=== PATIENT | male | born 1955 | race Caucasian/White ===

== ENCOUNTER 2018-03-17 11:44 | Emergency (ER) | payer BC ==
[~2018-03-17] VITALS: Ht 167.6 cm; Wt 77.1 kg
[~2018-03-17 11:44] MED LIST: ASPI-84 PO; MULT-608 PO
--- OUTSIDE RECORDS SUMMARY | 2018-03-17 11:49 | XMS REPORT | Continuity of Care Document ---
Author Author [facility] Organization [facility] Address Unknown Phone Unavailable Allergies Active Description Code Type Severity Reaction Onset Reported/Identified Relationship to Patient Clinical Status Yes No Known Drug Allergies [id number] Drug Allergy Unknown N/A 11/06/2009 Medications There is no data. Problems Date Dx Coded Attending Type Code Diagnosis Diagnosed By 03/13/2014 MALIHA ALFARO DO Ot V12.72 PERSONAL HISTORY OF COLONIC POLYPS 03/13/2014 MALIHA ALFARO DO Ot V67.9 FOLLOW-UP EXAM NOS 06/15/2017 MALIHA ALFARO DO Ot V72.84 EXAM PRE-OPERATIVE NOS Procedures There is no data. Results There is no data. Encounters ACCT No. Visit Date/Time Discharge Status Pt. Type Provider Facility Loc./Unit Complaint [id number] 01/18/2014 08:37:13 01/18/2014 23:59:59 CLS Outpatient Ruthie Silveira [id number] 10/25/2013 18:08:33 10/25/2013 23:59:59 CLS Outpatient Ruthie Silveira [id number] 03/13/2014 11:34:00 03/13/2014 14:13:00 DIS Outpatient MALIAH ALFARO DO [facility] [place] SCREENING [id number] 03/08/2014 05:45:00 03/08/2014 23:59:59 CLS Outpatient MALIHA ALFARO DO [facility] PREOP SCREENING [id number] 02/08/2014 07:23:00 02/08/2014 23:59:59 CLS Outpatient MALIHA ALFARO DO [facility] PREOP [id number] 09/11/2016 20:21:00 Document Registration
[2018-03-17] MEDS ORDERED: LORazepam INJ 2 MG/ML (ATIVAN) VIAL IVP PRN (12:15)
--- NOTE | 2018-03-17 12:17 | ED Neurological Problem ---
General Chief Complaint: Neurological Problems Stated Complaint: VERTIGO Nursing Triage Note: PT PRESENTS TO ED WITH COMPLAINTS OF VERTIGO WORSE WITH MOVEMENT OR LAYING DOWN. STATES IT STARTED LAST NIGHT. PT HAS HX OF VERTIGO AND WAS AT WORK AT [employer] AND WENT TO SEE THE [employer] [facility] WHEN HE FELL DUE TO DIZZINESS. PT DENIES ANY INJURY OR LOC. Nursing Sepsis Screen: No Definite Risk Source: patient Exam Limitations: no limitations History of Present Illness Date Seen by Provider: Mar 17, 2018 Time Seen by Provider: 12:13 Initial Comments To ER per private vehicle from work ([employer]) with reports of severe vertigo. He states this began acutely last night in the middle of the night. Pain is much worse when he stands upright or turns his head in any direction. When he felt perfectly still the vertigo subsides. He states that he has had troubles with vertigo since he was 31 at the time of onset of this. He states that he's been seen at [facility] and by several neurologists over the years to evaluate this vertigo. He does have a prescription for meclizine and he took one of these at 9 AM this morning without relief. He states that typically these episodes of vertigo which she gets once a year or so last few days before subsiding. He was sent here after seeing the nurse practitioner at [facility] from [facility] urgent care and was referred here. Over the years he has had the Bryce maneuver tried multiple times and he states all it does is make him more dizzy. Severity: moderate Associated Symptoms: No confusion, No fatigue, No fever/chills Allergies and Home Medications Allergies Coded Allergies: No Known Drug Allergies (Unverified , 11/06/09) Home Medications Aspirin 81 Mg Tablet.dr, 81 MG PO DAILY, (Reported) Multivitamins 1 Tab Tablet, 1 TAB PO DAILY, (Reported) Patient Home Medication List Home Medication List Reviewed: Yes Review of Systems Review of Systems Constitutional: see HPI Eyes: No Symptoms Reported Ears, Nose, Mouth, Throat: no symptoms reported Respiratory: no symptoms reported Cardiovascular: no symptoms reported Genitourinary: no symptoms reported Musculoskeletal: no symptoms reported Skin: no symptoms reported Past Xqmjfwd-Fddvaa-Uuidli Hx Patient Social History Alcohol Use: Occasionally Uses Recreational Drug Use: No Smoking Status: Never a Smoker Recent Foreign Travel: No Contact w/Someone Who Travel: No Recent Infectious Disease Expo: No Recent Hopitalizations: Yes (23 YRS AGO RINGING IN EARS/PANIC ATTACK) Past Medical History Surgeries: Yes (APPY AT 10 YEARS OLD, BLOOD CLOT REMOVED FROM R-AC AREA, L SHOULDER) Appendectomy Respiratory: No Cardiac: Yes High Cholesterol Neurological: Yes Vertigo Reproductive Disorders: No Gastrointestinal: No Musculoskeletal: No Endocrine: No HEENT: No Cancer: No Psychosocial: No Blood Disorders: No Physical Exam Vital Signs Vital Signs - First Documented 03/17/18 11:56 Temp 98.2 Pulse 75 Resp 20 B/P (MAP) 141/93 (109) Pulse Ox 96 Capillary Refill : Less Than 3 Seconds Height, Weight, BMI Height: 5'6.00" Weight: 170lbs. oz. 77.029302vx; BMI Method:Stated General Appearance: WD/WN, no apparent distress HEENT: PERRL/EOMI, normal ENT inspection, TMs normal, other (no nystagmus) Neck: non-tender, full range of motion Respiratory: normal breath sounds, no respiratory distress, no accessory muscle use Cardiovascular: regular rate, rhythm, no murmur Gastrointestinal: normal bowel sounds, non tender, soft Neurologic/Psychiatric: alert, normal mood/affect, oriented x 3 Crainal Nerves: normal hearing, normal speech, PERRL Skin: normal color, warm/dry Progress/Results/Core Measures Results/Orders Lab Results Laboratory Tests Test 03/17/18 11:55 Range/Units White Blood Count 8.4 4.3-11.0 10^3/uL Red Blood Count 5.25 4.35-5.85 10^6/uL Hemoglobin 16.4 13.3-17.7 G/DL Hematocrit 48 40-54 % Mean Corpuscular Volume 91 80-99 FL Mean Corpuscular Hemoglobin 31 25-34 PG Mean Corpuscular Hemoglobin Concent 34 32-36 G/DL Red Cell Distribution Width 12.7 10.0-14.5 % Platelet Count 371 130-400 10^3/uL Mean Platelet Volume 9.5 7.4-10.4 FL Neutrophils (%) (Auto) 59 42-75 % Lymphocytes (%) (Auto) 30 12-44 % Monocytes (%) (Auto) 9 0-12 % Eosinophils (%) (Auto) 2 0-10 % Basophils (%) (Auto) 1 0-10 % Neutrophils # (Auto) 5.0 1.8-7.8 X 10^3 Lymphocytes # (Auto) 2.5 1.0-4.0 X 10^3 Monocytes # (Auto) 0.7 0.0-1.0 X 10^3 Eosinophils # (Auto) 0.2 0.0-0.3 10^3/uL Basophils # (Auto) 0.0 0.0-0.1 10^3/uL Sodium Level 138 135-145 MMOL/L Potassium Level 4.4 3.6-5.0 MMOL/L Chloride Level 105 98-107 MMOL/L Carbon Dioxide Level 22 21-32 MMOL/L Anion Gap 11 5-14 MMOL/L Blood Urea Nitrogen 16 7-18 MG/DL Creatinine 1.03 0.60-1.30 MG/DL Estimat Glomerular Filtration Rate > 60 BUN/Creatinine Ratio 16 Glucose Level 101 70-105 MG/DL Calcium Level 10.1 8.5-10.1 MG/DL My Orders Orders - PRINCESS CERNA [employer]INEER Lorazepam Injection (Ativan Injection) (03/17/18 12:15) Basic Metabolic Panel (03/17/18 12:17) Cbc With Automated Diff (03/17/18 12:17) Medications Given in ED Current Medications Medications Dose Ordered Sig/Gigi Route Start Time Stop Time Status Last Admin Dose Admin Lorazepam 1 mg ONCE PRN IVP 03/17/18 12:15 03/17/18 12:30 1 MG Vital Signs/I&O 03/17/18 11:56 Temp 98.2 Pulse 75 Resp 20 B/P (MAP) 141/93 (109) Pulse Ox 96 Blood Pressure Mean: 109 Departure Communication (Admissions) 1311-patient states he is feeling more relaxed and the vertigo is still present but it is more tolerable at this time. He is ready to go home. Impression Primary Impression: Vertigo Disposition: HOME, SELF-CARE Condition: Stable Departure-Patient Inst. Decision time for Depature: 13:11 Referrals: PITER JUÁREZ DO (PCP) Primary Care Physician Patient Instructions: Vertigo (a Type of Dizziness) (DC) Add. Discharge Instructions: 1. Take medication as directed 2. Follow-up with your doctor next week 3. Return to ER for any worsening. All discharge instructions reviewed with patient and/or family. Voiced understanding. PRINCESS CERNA APRN Mar 17, 2018 12:17
[2018-03-17 12:33] LABS: BASOPHILS % (AUTO) 1 % (0-10); EOSINOPHILS # (AUTO) 0.2 10^3/uL (0.0-0.3); EOSINOPHILS % (AUTO) 2 % (0-10); HEMATOCRIT 48 % (40-54); HEMOGLOBIN 16.4 G/DL (13.3-17.7); LYMPHOCYTES # (AUTO) 2.5 X 10^3 (1.0-4.0); LYMPHOCYTES % (AUTO) 30 % (12-44); MEAN CORPUSCULAR HEMOGLOBIN 31 PG (25-34); MEAN CORPUSCULAR HGB CONC 34 G/DL (32-36); MEAN CORPUSCULAR VOLUME 91 FL (80-99); MEAN PLATELET VOLUME 9.5 FL (7.4-10.4); MONOCYTES # (AUTO) 0.7 X 10^3 (0.0-1.0); MONOCYTES % (AUTO) 9 % (0-12); NEUTROPHILS % (AUTO) 59 % (42-75); PLATELET COUNT 371 10^3/uL (130-400); RED BLOOD COUNT 5.25 10^6/uL (4.35-5.85); RED CELL DISTRIBUTION WIDTH 12.7 % (10.0-14.5); WHITE BLOOD COUNT 8.4 10^3/uL (4.3-11.0)
[2018-03-17 12:45] LABS: BUN/CREATININE RATIO 16; CALCIUM 10.1 MG/DL (8.5-10.1); CARBON DIOXIDE 22 MMOL/L (21-32); CHLORIDE 105 MMOL/L (98-107); CREATININE SERUM 1.03 MG/DL (0.60-1.30); GFR ESTIMATED > 60; GLUCOSE 101 MG/DL (70-105); POTASSIUM 4.4 MMOL/L (3.6-5.0); SODIUM 138 MMOL/L (135-145)
[2018-03-17 13:16] VITALS: BP 126/70
== END 2018-03-17 13:16 | disposition home or self-care (01) ==
LOC: EDUNIT# 11:44 → ER 11:45
DX: R42 Dizziness and giddiness (principal); E78.00 Pure hypercholesterolemia, unspecified; Z79.82 Long term (current) use of aspirin; Z90.49 Acquired absence of other specified parts of digestive tract
CPT/HCPCS: 36415; 80048; 85025; 96374

== ENCOUNTER → 2018-05-18 | Outpatient (CLI) | payer BC ==
[2018-05-18 15:50] VITALS: BP 139/86
--- NOTE | 2018-05-18 15:50 | Cardiology Stress Test Report ---
Stress Test Report Date of Procedure/Referring: Date of Procedure: May 18, 2018 PCP Christel Palacios MD Admitting Physician Zeferino Harman DO Baseline Heart Rate: 71 Baseline Blood Pressure: Blood Pressure Systolic: 139 Blood Pressure Diastolic: 86 Baseline EKG: Baseline EKG: Sinus Rhythm Summary/Conclusion: Summary: In summary, the patient started exercising with a baseline heart rate, blood pressure and EKG mentioned above Patient was able to exercise for a total of 9:30 minutes on Sathish protocol, 11.1 METs Maximum heart rate 157 Maximum blood pressure 157/75 Stress EKG Nondiagnostic changes, upsloaping ST depression in II, III, AVF, V4, V5 Recovery EKG Return to baseline Conclusion: 1. Good exercise tolerance for a total of minutes on Sathish protocol, METs, achieving percent of maximum expected heart rate 2. Nondiagnostic EKG changes with exercise returned to baseline during recovery 3. Occasional PVC's noted during test CHRISTEL PALACIOS MD May 18, 2018 15:50
== END ==
LOC: CARD 10:01
PROVIDERS: ATTEND Internal Medicine Cardiovascular Disease
DX: R07.89 Other chest pain (principal); I25.10 Atherosclerotic heart disease of native coronary artery without angina pectoris; Z82.49 Family history of ischemic heart disease and other diseases of the circulatory system
CPT/HCPCS: 93017

== ENCOUNTER → 2021-09-08 | Outpatient (CLI) | payer OTHER ==
[~2021-09-08] VITALS: Ht 167 cm; Wt 79.0 kg
[~2021-09-08] MED LIST changes: +CATHETER FLUSH 10 ML SYR IVP PRN
[2021-09-08 09:30] VITALS: BP 142/88
--- NOTE | 2021-09-08 12:12 | Cardiology Stress Test Report ---
Stress Test Report Date of Procedure/Referring: Date of Procedure: Sep 08, 2021 PCP Piter Harman DO Admitting Physician Admitting Physician: Attending Physician: Nika Mcfarlane Indications: HTN Baseline Heart Rate: 67 Baseline Blood Pressure: Blood Pressure Systolic: 142 Blood Pressure Diastolic: 88 Vital Signs Date Time Temp Pulse Resp B/P (MAP) Pulse Ox O2 Delivery O2 Flow Rate FiO2 09/08/21 09:30 63 16 142/88 (106) 98 Room Air Baseline Vital Signs Vital Signs Date Time Temp Pulse Resp B/P (MAP) Pulse Ox O2 Delivery O2 Flow Rate FiO2 09/08/21 09:30 63 16 142/88 (106) 98 Room Air Baseline EKG: Baseline EKG: NSR Summary: After explaining the procedure and details to the patient, he signed the consent and was brought to the stress nuclear laboratory. Patient exercised on standard Sathish protocol, EKG, heart rate and blood pressure were monitored continuously, resting and stress doses of radio tracer were injected, imaging was acquired and reviewed in the short axis, horizontal long axis and vertical long axis views Patient was able to exercise for a total of 8 minutes on Sathish protocol, METs 9.7 Maximum heart rate 139 Maximum blood pressure 216/95 Stress EKG, Minimal nondiagnostic changes Recovery EKG, Return to baseline TID: 1.09 SSS: 3 SDS: 1 EF: 60 Conclusion: 1. Fair exercise tolerance for a total of 8 minutes on standard Sathish protocol, 9.7 METS achieving 89% of maximum expected heart rate 2. Appropriate heart rate response to exercise with hypertensive response to exercise peak blood pressure 216/95 return to baseline during recovery 3. Nondiagnostic EKG changes with exercise return to baseline during recovery 4. No ischemia or infarction noted on SPECT images 5. Normal left ventricular size, ejection fraction 60% Copy Copies To 1: PITER HARMAN BASHAR J MD Sep 08, 2021 12:12
== END ==
LOC: CARD 08:00
PROVIDERS: ATTEND Physician Assistant
DX: I10 Essential (primary) hypertension (principal); I25.10 Atherosclerotic heart disease of native coronary artery without angina pectoris
CPT/HCPCS: 78452; 93017; A9502

== ENCOUNTER → 2022-08-25 | Outpatient (CLI) | payer MEDICARE, OTHER ==
[~2022-08-25] MED LIST changes: -CATHETER FLUSH 10 ML SYR IVP PRN
== END ==
LOC: CARD 09:19
PROVIDERS: ATTEND Internal Medicine Cardiovascular Disease
DX: I11.9 Hypertensive heart disease without heart failure (principal); I25.10 Atherosclerotic heart disease of native coronary artery without angina pectoris
CPT/HCPCS: 93306